=== PATIENT | female | born 1985 | race Caucasian/White ===

== ENCOUNTER 2016-10-13 05:00 | Inpatient (IN) | payer MEDICAID ==
[~2016-10-13] VITALS: Ht 167.6 cm; Wt 90.7 kg
--- NOTE | ~2016-10-13 | HP ---
ADMIT: 10/13/2016 RM/LOC: [facility] MR#: [id number] 2620 [facility] [address] [place] [phone] CHARLES MARTINEZ [address] [place] [address] History and Physical SEX: F AGE: 30 : 1985 DATE OF SERVICE: CHIEF COMPLAINT: Repeat , history of x1. HISTORY OF PRESENT ILLNESS: Charles is a very pleasant, 30-year-old, 4, para 2-0-1-2, with a current intrauterine at 38 weeks and 6/7 days by first trimester ultrasound. She will be presenting tomorrow to Labor and Delivery for repeat by Dr. Bobby and myself. The patient has a history of x1 in 2012. Prior to this, she had a normal vaginal delivery in 2007. The patient has been followed from very on in . This was an unplanned , but father of the baby has been involved, Tano. She has been taking vitamin from early on in and has followed up regularly for care. Her last sounded like she had a cord prolapse and that is what prompted an emergent . Otherwise, she has not had any other problems with her previous pregnancies and no problems with this . She did have anemia of , and she has been on ferrous sulfate in addition to her vitamin. She has also had some edema in her lower extremities and has had compression stockings for this. Her blood pressures and other vitals have remained normal and regular checks have been reassuring. I did see her today, and she had no other complaints. PAST MEDICAL HISTORY: Includes history of migraines without auras, history of abnormal Pap smears in the past, history of nicotine dependence, quit during this . MEDICATIONS: Include: 1. vitamin. 2. Ferrous sulfate 325 mg daily. ALLERGIES: NO KNOWN DRUG ALLERGIES. SOCIAL HISTORY: No alcohol, drug, or tobacco use. The patient is originally from [place]. Father of baby Tano is involved. FAMILY HISTORY: Noncontributory. REVIEW OF SYSTEMS: A 10-point review of systems obtained, per HPI otherwise negative. PHYSICAL EXAMINATION: VITAL SIGNS: Blood pressure 122/74, pulse 74, respirations 16, temperature 97.4, weight 201 pounds, starting weight at beginning of was 162 pounds, she has gained approximately 39 pounds with this . GENERAL: Alert and oriented x3, in no acute distress. HEENT: Pupils equal, round, and reactive. Extraocular muscles intact. Throat clear. Trachea midline. HEART: Regular rate and rhythm. No murmurs. LUNGS: Clear to auscultation bilaterally. No wheezes or crackles. ADMIT: 10/13/2016 RM/LOC: [facility] MR#: [id number] [address] [id number] [place] [address] [address] [place] [address] History and Physical SEX: F AGE: 30 : 1985 ABDOMEN: Soft. Gravid. Uterine fundus measures to 39 cm. Cervical check shows 1 cm dilated, 10% effaced, -4 station. Vertex. EXTREMITIES: With trace edema. NEUROLOGIC: Cranial nerves II through XII are grossly intact. No focal deficits. heart tones 164. LABORATORY DATA: Urine today is negative for glucose and protein. Group B strep was negative. Hemoglobin on 09/22 was 12.3 and platelets 223. OB glucose screening on 07/24 was 152, followed by negative 3-hour glucose tolerance test on 07/28. LABORATORIES: Blood type is O positive, antibody negative, hepatitis B surface antigen negative, rubella immune, syphilis negative, HIV negative, GC and chlamydia negative. ASSESSMENT AND PLAN: A 30-year-old, 4, para 2-0-1-2, with an intrauterine at 38 weeks and 6/7 days. 1. A 39 weeks and 0/7 days on date of delivery. 2. Anemia of , on iron replacement with normal hemoglobin recently. 3. Unplanned . 4. Nicotine use early , since stopped. 5. GBS negative. 6. History of previous section x1. PLAN: We will plan to proceed with repeat tomorrow morning with Dr. Bobby. Everything thus far has been reassuring, and has been relatively straightforward. Anticipate normal delivery tomorrow. All the risks, benefits, and alternatives have been discussed with the patient, and she agrees to proceed with the procedure tomorrow. Talon Maxwell MD/ michael JOB #: [id number] CC: Talon Maxwell, Attending Physician UNKNOWN, Family Physician
[2016-10-17] MEDS ORDERED: PRENATAL VIT1 TAB PO (06:13)
[2016-10-17] MEDS ORDERED: NIPPLECREAM TP (06:14)
[2016-10-17] MEDS ORDERED: COLACE-DPS100 MG PO (06:14)
[2016-10-17] MEDS ORDERED: MOTRIN-DPS600 MG PO (06:14)
[2016-10-17] MEDS ORDERED: IRON325 M1 PO (06:14)
[2016-10-17] MEDS ORDERED: PERCOCET 5-3251 EACH PO (06:14)
--- NOTE | 2016-11-07 06:50 | HP ---
ADMIT: 10/13/2016 RM/LOC: 217 [facility] MR#: [id number] 2620 [facility] [address] [place] [phone] CHARLES MARTINEZ [address] [place] [address] [address] [place], [place] [address] History and Physical SEX: F AGE: 30 : 1985 DATE OF SERVICE: CHIEF COMPLAINT: Repeat section. HISTORY OF PRESENT ILLNESS: This is a 30-year-old, G4, P 2-1-0-2, with an intrauterine at 39 weeks 1 day via 7-week ultrasound, who [facility]. The patient denies contractions, leaking of fluid, vaginal bleeding. She reports normal movement. complicated by history of section in 2003, for a cord prolapse. Her postoperative course was complicated by a need for blood transfusion. She also has a. 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 No other known complications. PAST MEDICAL HISTORY: She has a history of blood transfusion in 2013, history of anemia, and history of abnormal Pap smear in 2013. SOCIAL HISTORY: She denies alcohol use, tobacco use, or recreational drug use. Father of baby is involved. PAST SURGICAL HISTORY: She has a history of section in 2013. No other known surgical history. FAMILY HISTORY: She denies a family history of hypertension, asthma, or diabetes. MEDICATIONS: She is taking vitamins. ALLERGIES: IODINE CAUSES DIFFUSE RASH AND ITCHING. REVIEW OF SYSTEMS: She denies headache, changes of vision, chest pain, or shortness of breath. No nausea, vomiting, diarrhea, or constipation. No swelling in bilateral lower extremities. PHYSICAL EXAMINATION: VITAL SIGNS: 121/60 blood pressure, pulse 72, respiratory rate 16, afebrile, saturating 95% on room air. GENERAL: She is alert and oriented, in no acute distress. HEART: Regular rate and rhythm. No murmur. LUNGS: Clear to auscultation bilaterally. ABDOMEN: Gravid, nontender. Estimated weight is 3800 g. EXTREMITIES: No edema. Bilateral pulses are 2+. heart rate tracing baseline appears to be 140, moderate variability, positive accels, no decels. She is not yobani on tocometer. LABORATORY DATA: Blood type is O positive. Hepatitis B negative. Direct antibody screen negative. Syphilis negative. Rubella immune. ADMIT: 10/13/2016 RM/LOC: 217 [facility] MR#: [id number] [id number] [facility] [address] [place] [phone] [facility] CHARLES CALLE [address] [place] [address] [address] [place] [address] History and Physical SEX: F AGE: 30 : 1985 Gonorrhea and Chlamydia negative. Hemoglobin 13.8, platelets 214. ASSESSMENT AND PLAN: This is a 30-year-old, 4, para 2-1-0-2, with an intrauterine at 39 weeks 1 day via 7-week ultrasound, who presents to the [facility] for a planned repeat section. 1. Admit to the [facility]. Discussed risks, benefits, and alternatives of repeat section. The patient wishes to proceed. Also, discussed risk of blood transfusion. She does consider transfusion if needed. Routine pre operative orders including Ancef. We will avoid iodine given the patient's allergy. Postoperative pain control to be determined pending anesthesia. 2. heart tones reassuring, category I strip. The patient was seen and discussed with staff physician on day of admission. Anusha Garcia MD Resident / Talon Maxwell MD / modl JOB #: [id number] CC: Talon Maxwell, Attending Physician Talon Maxwell, Family Physician
--- NOTE | 2016-11-20 07:37 | OR ---
ADMIT: 10/13/2016 RM/LOC: 217 [facility] MR#: [id number] [address] [facility] [address] [place] [phone] CHARLES MARTINEZ [address] [place] [address] [address] [place], [place] [address] Operative/Delivery Room Report SEX: F AGE: 30 : 1985 Corrected: 10/16/201623 njv SURGERY DATE: 10/13/2016 SURGEON: Socorro Bobby MD PREOPERATIVE DIAGNOSES: 1. A 30-year-old, G4, P2-1-0-2 with intrauterine at 39 weeks 1 day via 7-week ultrasound here for a repeat section. 2. History of in 2013 secondary to cord prolapse. 3. History of blood transfusion in 2013 following section. 4. History of 1st child with demise at 24 weeks secondary to multiple congenital anomalies. POSTOPERATIVE DIAGNOSES: 1. A 30-year-old, G4, P3-1-0-3 status post repeat section at 39 weeks 1 day. 2. History of section complicated by hemorrhage in 2013. 3. History of demise at 24 weeks during 1st in 2004 due to congenital anomalies. PROCEDURE: Repeat low transverse section. ASSISTANTS: 1. Talon Maxwell MD. 2. Anusha Garcia MD, Resident. INDICATION: The patient is a 30-year-old female, G4, P3-1-0-3 with intrauterine at 39 weeks 1 day who [facility] for planned repeat section. was complicated by the diagnoses listed above. ANESTHESIA: Spinal. COMPLICATIONS: None. The patient tolerated the procedure well. ESTIMATED BLOOD LOSS: 500 mL. FLUIDS: 2700 mL LR. URINE OUTPUT: 75 mL clear urine. FINDINGS: 1. This is a female in the BHAVESH presentation, information below. 2. No meconium noted. Resuscitation team present at delivery. 3. score 7 and 9. Weight of 3340 g. 4. Normal uterus, tubes, and ovaries. Delivery information for baby girl Vinny Nobles. Delivery date 10/13/2016. Delivery time 08. Delivery type, repeat section. ADMIT: 10/13/2016 RM/LOC: 217 [facility] MR#: [id number] [address]20 [facility] [address] [place], [place] [phone] JAJA MARTINEZLENA [address] [place] [address] DR [address] [place] [address] Operative/Delivery Room Report SEX: F AGE: 30 : 1985 sex-female. DISPOSITION: and mother stable in mother's room. PROCEDURE IN DETAIL: The patient was taken to the operating room and anesthesia was administered. She was placed in dorsal supine position in leftward tilt. SCDs and Wright catheter were placed, and she was prepped and draped in the normal sterile fashion. A time-out was performed. Anesthesia was found be adequate. Antibiotics were given prior to skin incision. A Pfannenstiel skin incision was then made with a scalpel and carried through the underlying layer of fascia with the scalpel. This incision was made over her previous incision site. The fascia was then nicked in the midline and the incision extended laterally with Dee scissors. The superior aspect of the fascial incision was then grasped with Jairon clamps, elevated, and underlying rectus muscles dissected off bluntly. Attention was then turned to the inferior aspect of this incision, which in similar fashion was then dissected. The rectus muscles were then in the midline and the peritoneum was then stretched to get visual visualization of the bladder. A bladder blade was then inserted and the vesicouterine peritoneum was identified. Bladder flap was made. The peritoneum was grasped with the pickups, and entered sharply with Metzenbaum scissors. Incision was then extended laterally and a bladder flap created digitally. The lower uterine segment was then incised in a transverse fashion with a scalpel. The uterine incision was then extended craniocaudally and manually. The bladder blade was then removed. The infant's head was brought to the hysterotomy and was delivered atraumatically with the body following. The infant was vigorous and crying. The cord is clamped and cut. The infant was handed to the awaiting resuscitation team. Cord blood was collected. Cord gas was not collected. The placenta was then removed with fundal massage and cord traction. The uterus exteriorized and cleared of all clots and debris. The placenta was not sent to pathology. The uterine incision was repaired with 0 Polysorb in a running locked fashion. A 2nd imbricating layer was not placed, however, 2 hjtzcf-lz-txlvd stitches with 0 Vicryl suture were used to achieve hemostasis. There was excellent hemostasis. The posterior cul-de-sac was then visualized and cleared of clots and debris. The uterus was replaced and the left and right pericolic gutters visualized and cleared of clot and debris. The uterine incision was again visualized and ADMIT: 10/13/2016 RM/LOC: 217 [facility] MR#: [id number] [address] [address] [facility] [address] [place] [address] Operative/Delivery Room Report SEX: F AGE: 30 : 1985 noted to remain hemostatic. The peritoneum was reapproximated but not closed. The fascia was then closed with 0 Polysorb in a running fashion and irrigated. Hemostasis was ensured. The subcutaneous tissue was then closed with 2-0 plain in an interrupted fashion. The skin was closed with a subcuticular stapler. The patient tolerated the procedure well. Instrument, sponge, lap, and needle counts were correct x2. The patient was taken to the recovery room in stable condition. Dr. Socorro Bobby and Dr. Talon Maxwell were present and scrubbed for the entire delivery. Anusha Garcia MD Resident / Socorro Bobby MD / michael JOB #: [id number] CC: Talon Maxwell, Attending Physician Talon Maxwell, Family Physician Corrected: 10/16/2016 0623 njv
--- NOTE | 2016-11-20 07:41 | DS ---
ADMIT: 10/13/2016 RM/LOC: 217 [facility] MR#: [id number] [id number] [facility] [address] [place] [id number] TOMMIE MORGANULICHARLES CAGE [address] [place], [place] [address] Discharge Summary SEX: F AGE: 30 : 1985 CORRECTION: 10/15/2016 1620 ADMISSION DATE: 10/13/2016 DISCHARGE DATE: 10/15/2016 FINAL DIAGNOSES: 1. 30-year-old, G4, P3-1-0-3, status post repeat low transverse section. 2. Anemia. 3. History of with demise and multiple congenital anomalies at 24 weeks in 2004. REASON FOR ADMISSION: This is a 30-year-old, G4, P3-1-0-3, who presented to the [facility] for a planned repeat section. Her first section was performed in [place] in 2013. Indication for section was cord prolapse. That hospital course was complicated by need for transfusion of packed red blood cells. The patient desired repeat section with this . The patient's had been complicated by a history of demise at 24 weeks with multiple congenital anomalies in the fetus. Her had also been complicated by a history of primary section in 2013. The patient was admitted. She ultimately underwent a repeat low transverse section and had a female infant with a weight of 7 pounds 5 ounces and Apgars of 7 and 9. The baby stayed at the maternal bedside following delivery. The baby's hospital course was uncomplicated. The patient's course was complicated by anemia with a hemoglobin of 9.7. She was started on iron supplementation. Her course was otherwise uncomplicated. She is breast feeding and meeting discharge criteria and desires to be discharged to home today, postoperative day two. She is undecided on contraception. Delivery information: Delivery date 10/13/2016. Delivery time was 0805 hours. Delivery type: Repeat low transverse section. sex: Female. Weight of 3340 g. Apgars 7 and 9. LABORATORY DATA: All labs final at the time of discharge. DISCHARGE MEDICATIONS: 1. Motrin 800 mg q.8h hours p.r.n. 2. Percocet 5 mg 1-2 tablets q.4 hours p.r.n. 3. Colace 100 mg b.i.d. 4. Ferrous sulfate 325 mg daily. 5. vitamin. INSTRUCTIONS: The patient was instructed to have pelvic rest for six weeks. Recommended no driving while on narcotics. Recommended lifting restriction of 20 pounds for six weeks. She should notify her physician with a temperature ADMIT: 10/13/2016 RM/LOC: 217 [facility] MR#: [id number] [address] [id number] [facility] CHARLES CALLE [facility] [address] [place] [address] Discharge Summary SEX: F AGE: 30 : 1985 greater than 100.4, if she is having brisk vaginal bleeding that soaks through more than one pad per hour, if any area of her breast becomes red or painful, or if her pain is no longer controlled by pain medications. Recommended general diet as tolerated and increased fluid intake. Discussed signs and symptoms of blues and depression and to contact us immediately should this become a concern. FOLLOWUP: Recommend follow up with Dr. Talon Maxwell in six weeks for visit. The patient was seen and discussed with Dr. Rose Vernon on the day of discharge. Anusha Garcia MD Resident / Socorro Bobby MD / doreen JOB #: [id number] CC: Talon Maxwell MD, Attending Physician Talon Maxwell MD, Family Physician CORRECTION: 10/15/2016 1623
== END 2016-10-15 12:10 | disposition home or self-care (01) | DRG 766 ==
LOC: BC 05:00 → 2LDRP 05:00 → BC 10-20 08:00
PROVIDERS: ADMIT Obstetrics & Gynecology
PROC: 10D00Z1 Extraction of Products of Conception, Low, Open Approach (ICD-10-PCS; principal; 2016-10-13)
DX: O34.211 Maternal care for low transverse scar from previous cesarean delivery (principal); D64.9 Anemia, unspecified; O99.02 Anemia complicating childbirth; Z87.891 Personal history of nicotine dependence; Z3A.39 39 weeks gestation of pregnancy; Z37.0 Single live birth

== ENCOUNTER 2016-10-19 17:36 | Inpatient (IN) | payer MEDICAID ==
[~2016-10-19] VITALS: Ht 167.6 cm; Wt 93.6 kg
--- NOTE | ~2016-10-19 | OR ---
ADMIT: 10/19/2016 RM/LOC: 630 [facility] MR#: [id number] [address] [phone] CHARLES MARTINEZ [address] [place] [address] [address] [place], [place] [id number] Operative/Delivery Room Report SEX: F AGE: 30 : 1985 SURGERY DATE: 10/19/2016 SURGEON: Yolis Cunningham MD PREOPERATIVE DIAGNOSES: 1. 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 2. Postoperative day #7 repeat low-transverse section. POSTOPERATIVE DIAGNOSES: 1. 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 2. Postoperative day #7 repeat low-transverse section. PROCEDURE: Exploratory laparotomy, repair of wound dehiscence, copious irrigation, and examination of bowel. EDITORIAL CARTOONIST: Immanuel Davenport MD ANESTHESIA: General endotracheal anesthesia. ESTIMATED BLOOD LOSS: 30 mL. URINE OUTPUT: 400 mL during the procedure. IV FLUIDS: 1300 mL crystalloid. FINDINGS: Small bowel normal and healthy in appearance. Normal-appearing peritoneal rectus, fascia and subcutaneous tissues and surfaces. No evidence of bowel injury or any evidence of infection within any of the tissues examined. INDICATIONS FOR PROCEDURE: This is a 30-year-old, G4, P3-1-0-3, who is postop day #7 from a repeat low-transverse section. She presented via ambulance to the emergency room after sneezing and noting popping sensation and opening of her wound. Upon examination in the emergency room, she was then immediately noted to have fascial dehiscence with evisceration of bowel. It was recommended to proceed emergently with surgery to correct. PROCEDURE IN DETAIL: The patient was taken back to the operating room, where general endotracheal anesthesia was placed. She was prepped and draped in the usual sterile fashion in dorsal supine position. She was prepped with chlorhexidine prep while keeping bowel covered with a sterile towel around the incision. Time-out was then performed after she was prepped and draped in the usual sterile fashion. On examination of the tissues, additional subcutaneous absorbable sutures were identified and removed. Steri-Strips prior to prepping were also seen and removed. One additional strip was noted after removal of the blue towel. Bowel was examined and noted to be healthy. No evidence of compression or necrosis or infection seen. Incision was reopened and bowel was able to be placed back into the abdomen and able to be examined and noted to be normal. All tissues were examined. There was a small button ADMIT: 10/19/2016 RM/LOC: 630 [facility] MR#: [id number] [address] [place] [phone] CHARLES MARTINEZ [address] [place] [address] [place] [address] Operative/Delivery Room Report SEX: F AGE: 30 : 1985 hole noted in the superior aspect of the fascia, which was closed with a mdscep-ok-yhres of 0 Vicryl. Abdomen was then copiously irrigated with approximately 2 L of normal saline. There is no evidence of necrosis and no evidence of infection. All tissue would easily bleed. Old Vicryl suture was removed from the fascia. 0 PDS on a loop was then used to reapproximate fascia in a running fashion starting at the left angle closing on the right. Subcutaneous tissue was then also irrigated copiously. Was reapproximated using 2-0 plain gut in a running fashion. Skin was closed using subcuticular stitching with 4-0 Vicryl. Prevena was then placed over the closed incision. Sponge and instrument counts were correct x2. COMPLICATIONS: None. DISPOSITION: The patient taken stable extubated to recovery room. Yolis Cunningham MD/ michael JOB #: [id number] CC: Yolis Cunningham, Attending Physician Socorro Bobby, Family Physician MD Talon Hastings MD Molly A Johnson, MD
[~2016-10-19 17:36] MED LIST: COLACE-DPS100 MG PO; IRON325 M1 PO; MOTRIN-DPS600 MG PO; NIPPLECREAM TP; PERCOCET 5-3251 EACH PO; PRENATAL VIT1 TAB PO
--- NOTE | 2016-10-24 13:43 | ER ---
ADMIT: 10/19/2016 RM/LOC: 630 [facility] MR#: [id number] [address] [facility] [address] [place] [phone] CHARLES MARTINEZ [address] [place] [address] [address] [place] [address] Emergency Room Report SEX: F AGE: 30 : 1985 DATE: 10/19/2016 A 30-year-old female, about 3 days to 5 days post . Came in after she has what is an obvious dehiscence of bowel coming out. She has no other complaints. PAST MEDICAL HISTORY: Significant disease, status post on Sunday, otherwise negative. MEDICATIONS: See list. ALLERGIES: NONE. FAMILY SOCIAL HISTORY: In with significant other. REVIEW OF SYSTEMS: GI: She has no abdominal pain. SKIN: See history of present illness. PHYSICAL EXAMINATION: GENERAL: Mildly anxious. VITAL SIGNS: Stable. Afebrile. HEENT: Negative on inspection. RESPIRATORY: She is not in any respiratory distress. ABDOMEN: Nontender. SKIN: She has an obvious wound dehiscence with bowel coming out in the lower abdominal section. This was a Pfannenstiel scar and incision, but it is still pink with no pus or other findings. DIAGNOSIS: wound dehiscence. TREATMENT: I spoke with Dr. Cunningham. She will come in and take her to surgery and fix it. CONDITION ON DISCHARGE: Serious but stable. Kirill Galeas MD/ michael JOB #: [id number] CC: Yolis Cunningham MD, Attending Physician Socorro Bobby MD, Family Physician
--- NOTE | 2016-11-03 09:23 | HP ---
ADMIT: 10/19/2016 RM/LOC: 630 [facility] MR#: [id number] 2620 [facility] [address] [place] [phone] CHARLES MARTINEZ [address] [place] [address] History and Physical SEX: F AGE: 30 : 1985 DATE OF SERVICE: HISTORY OF PRESENT ILLNESS: This is a 30-year-old, G4, P3-1-0-3, who is postoperative day #7 from a repeat low-transverse section at 39 weeks and 1 day, who presented to the emergency room by ambulance with complaints of sneezing with sudden rupture of her wound and dehiscence and evisceration of bowel. Otherwise, her past medical history and her course has been uncomplicated. The patient indicates that she had not been having any problems with her wound or significant pain. She had previously been on a work appointment and just had gotten home when experienced three strong sneezes in a row and felt a popping sensation and then noticed bowel. Immediately, a family member called 911 and ambulance arrived and brought her emergently to the emergency room where she was found to have a complete fascial dehiscence and evisceration of small bowel. PAST MEDICAL HISTORY: She has a history of blood transfusion in 2013 due to anemia postoperative from her . She also has a history of abnormal Pap smear. PAST SURGICAL HISTORY: She has had one prior section in 2003 for cord prolapse. SOCIAL HISTORY: She denies any alcohol, tobacco, or recreational drug use. Father of baby is involved. FAMILY HISTORY: Denies family history of hypertension, asthma, or diabetes. MEDICATIONS: She is taking; 1. vitamins. 2. Percocet for pain. ALLERGIES: IODINE WHICH CAUSES DIFFUSE RASH AND ITCHING. REVIEW OF SYSTEMS: Other than pain and initial dehiscence. She denies any significant nausea, vomiting, chest pain, shortness of breath, bowel problems, or urinary symptoms. PHYSICAL EXAMINATION: VITAL SIGNS: Blood pressure is 127/70, heart rate is 90, respirations 18, temperature is 100.6. She is 98% on room air. GENERAL: The patient is in no acute distress. Currently, lying in the bed. HEART: Regular rate and rhythm. No murmurs, rubs, or gallops. LUNGS: Clear to auscultation bilaterally. ABDOMEN: Covering over incision was removed. Four wet 4x4s were noted to be lying over the wound and these were removed. The small bowel was visible outside the abdomen and looked normal and healthy in nature. Small bowel was then covered with two wet surgical towels. ADMIT: 10/19/2016 RM/LOC: 630 [facility] MR#: [id number] [address] [address] [facility] CHARLES CALLE [facility] [address] [place] [address] History and Physical SEX: F AGE: 30 : 1985 ASSESSMENT AND PLAN: This is a 30-year-old, G4, P3-1-0-3, who presents to the emergency room with a complete fascial dehiscence and evisceration. Discussed the seriousness of the condition and emergent surgery is necessary. Reviewed that if bowel is found to be healthy, wound could be closed. However, if there is any other significant risks of infection or problems with her bowel, she may require a bowel resection and subsequent surgeries and prolonged hospital stay. She also understands the risk of bleeding, infection, anesthesia complications, and venous thromboembolism. The patient voiced understanding and signed consent. We will consult General Surgery assist in the operating room. Yolis Cunningham MD/ michael JOB #: [id number] CC: Yolis Cunningham, Attending Physician Socorro Bobby, Family Physician
--- NOTE | 2016-11-27 08:46 | DS ---
ADMIT: 10/19/2016 RM/LOC: 630 [facility] MR#: [id number] [address] [id number] CHARLES MARTINEZ [address] [place] [address] Discharge Summary SEX: F AGE: 30 : 1985 ADMISSION DATE: 10/19/2016 DISCHARGE DATE: 10/22/2016 DIAGNOSES: 1. Postoperative day number seven from repeat low-transverse section. 2. 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 PROCEDURES PERFORMED DURING ADMISSION: Exploratory laparotomy, irrigation of intraperitoneal contents, and repair of fascial dehiscence. HOSPITAL COURSE: This is a 30-year-old female who presented to the emergency room by squad on postoperative day number seven from a repeat low-transverse section after sneezing three times and having complete fascial dehiscence with small bowel evisceration at her home. She was taken emergently to the operating room after presentation to the emergency room where her bowel was copiously irrigated and wound was closed. ProVena Plus was placed over the over the closed incision. Her hospital course was uncomplicated and by hospital day number three, she was meeting all anticipatory postoperative goals, pain was well controlled. No significant issues or problems and did desire to be discharged home. DISCHARGE MEDICATIONS: The patient was discharged home on: 1. Ibuprofen 600 mg, #30. 2. Percocet 5/325, #20. DISCHARGE INSTRUCTIONS: Patient was instructed to continue pelvic rest as previously described. She is instructed to call if she has any fevers, chills, nausea, vomiting, diarrhea, or problems with her incision. She is scheduled to follow up on the following , postoperative day number seven from her second surgery for removal of the ProVena wound dressing. Yolis Cunningham MD/ анна JOB #: [id number] CC: Yolis Cunningham MD, Attending Physician Socorro Bobby MD, Family Physician
== END 2016-10-22 13:55 | disposition home or self-care (01) | DRG 769 ==
LOC: ER 17:36 → 6PED 18:13 → WOR 18:13 → 6PED 20:22
PROC: 0WJG0ZZ Inspection of Peritoneal Cavity, Open Approach (ICD-10-PCS; principal; 2016-10-19)
PROC: 0WQF0ZZ Repair Abdominal Wall, Open Approach (ICD-10-PCS; principal; 2016-10-19)
DX: O90.0 Disruption of cesarean delivery wound (principal)